=== PATIENT | female | born 1985 | race Two or more races ===

== ENCOUNTER → 2025-06-29 | Outpatient (CLI) | payer MEDICAID, SELFPAY ==
[2025-06-29 12:37] LABS: HCG Qualitative,Urine Negative
--- NOTE | 2025-06-29 12:49 | XR_ITS ---
Examination: CT brain, without contrast. CT brain with intravenous contrast 2-D sagittal reconstructions. 2-D coronal reconstructions. 3-D reconstructions. Date and time of exam: June 29, 2025, 1421 hours INDICATIONS: Seizure activity with fall last week, head pain CTDI: vol (mGy): 108 DLP: (mGycm): 2070 Technique: Multiple 1.25 mm axial sections of the head brain pre and post 50 cc Isovue-370 intravenous have been obtained. 2-D sagittal and coronal reconstructions have been obtained. 3-D reconstructions have been obtained. Low dose protocols were performed. One or more of the following dose reduction techniques were used; automated exposure control, adjustment of the mA and/or KV according to patient size, use of iterative reconstruction technique. Findings: Ventricles are normal in size and configuration. No mass effect upon the ventricular system No effacement cortical sulci No acute hemorrhage either intra or extra-axial Cranial vault intact No definite abnormal cerebellar or cerebral lesions IMPRESSION: Negative for acute hemorrhage mass effect or midline shift No acute infarct No focal intracranial lesion If seizures persist, recommend brain MRI follow-up, pre and post contrast, seizure protocol
== END | disposition home or self-care (01) ==
LOC: SCAT 12:00
PROVIDERS: PCP Physician Assistant; Referring Provider Physician Assistant; Visit Provider Physician Assistant
DX: S09.90XA Unspecified injury of head, initial encounter (principal); W19.XXXA Unspecified fall, initial encounter; Z86.69 Personal history of other diseases of the nervous system and sense organs; Z32.00 Encounter for pregnancy test, result unknown
CPT/HCPCS: 70470; 81025; A4649; Q9967

== ENCOUNTER → 2025-06-30 | Outpatient (CLI) | payer MEDICAID, SELFPAY ==
--- NOTE | 2025-06-30 11:30 | XR_ITS ---
Examination: Screening digital mammography, bilateral Computer aided detection 3-D breast Tomosynthesis, bilateral Date and time of exam: June 30, 2025, 1114 hours, no priors Indication: Screening Technique: Nonmagnified MLO, CC views of the breasts to been obtained, reconstructed from 3-D Tomosynthesis images. R2 computer aided detection program utilized for evaluation of suspicious masses and/or abnormal calcifications. 3-D Tomosynthesis images obtained. Findings: Scattered areas of fibroglandular density. Grouped microcalcifications lower inner left breast posterior depth Mildly prominent right axillary lymph nodes Impression: BI-RADS Category 0: Incomplete: Need additional imaging evaluation Recommend follow-up magnification views of grouped microcalcifications lower inner left breast as well as bilateral breast sonography follow-up.
== END | disposition home or self-care (01) ==
PROVIDERS: PCP Physician Assistant; Referring Provider Physician Assistant; Visit Provider Physician Assistant
DX: Z12.31 Encounter for screening mammogram for malignant neoplasm of breast (principal); R92.0 Mammographic microcalcification found on diagnostic imaging of breast; R92.8 Other abnormal and inconclusive findings on diagnostic imaging of breast
CPT/HCPCS: 77063; 77067